=== PATIENT | male | born 1995 | race African-American/Black ===

== ENCOUNTER 2020-12-16 23:35 | Emergency (ER) | payer SELFPAY ==
[~2020-12-16] VITALS: Ht 175.3 cm; Wt 73.9 kg
[2020-12-16] MEDS ORDERED: BOOSTRIX/ADACEL VACCINE (DIPHTH/PERTUSS/ACELL/TETANUS) 0.5ML SYR IM ONE (23:50)
[2020-12-17 00:13] LABS: INR 0.96
[2020-12-17 00:14] LABS: PARTIAL THROMBOPLASTIN TIME 23.1 SECONDS (24.2-38.5)
[2020-12-17 00:17] LABS: BASO % 0.3 % (0.0-1.0); EOS # 0.1 10^3/uL (0.0-0.5); EOS % 1.3 % (0.0-3.0); HEMATOCRIT 39.8 % (42.0-52.0); HEMOGLOBIN 12.7 g/dl (13.5-17.5); LYMPH # 6.8 10^3/uL (1.5-5.0); LYMPH % 61.3 % (24.0-44.0); MEAN CORPUSCULAR HEMOGLOBIN 26.3 pg (27.0-33.0); MEAN CORPUSCULAR HGB CONC 31.9 g/dl (32.0-36.5); MEAN CORPUSCULAR VOLUME 82.6 fl (80.0-96.0); MONO # 0.6 10^3/uL (0.0-0.8); MONO % 5.4 % (2.0-8.0); NEUTROPHILS # 3.5 10^3/uL (1.5-8.5); NEUTROPHILS % 31.3 % (36.0-66.0); PLATELET COUNT, AUTOMATED 215 10^3/uL (150-450); RED BLOOD COUNT 4.82 10^6/uL (4.30-6.10); WHITE BLOOD COUNT 11.1 10^3/uL (4.0-10.0)
[2020-12-17] MEDS ORDERED: ISOVUE-370 76% 100ML VIAL As Ordered ONE (00:19)
[2020-12-17] MEDS ORDERED: MORPHINE 2 MG/ML 1ML VIAL (J2270) IV ONE (00:35)
[2020-12-17] MEDS ORDERED: LIDOCAINE 1% MDV 50ML VIAL SC ONE (00:40)
[2020-12-17 01:08] LABS: ALBUMIN 4.1 GM/DL (3.2-5.2); ALT/SGPT 46 U/L (12-78); AMYLASE 97 U/L (25-115); BILIRUBIN,DIRECT 0.2 MG/DL (0.0-0.2); BILIRUBIN,TOTAL 0.6 MG/DL (0.2-1.0); BLOOD UREA NITROGEN 14 MG/DL (7-18); CALCIUM LEVEL 8.9 MG/DL (8.5-10.1); CARBON DIOXIDE LEVEL 21 MEQ/L (21-32); CHLORIDE LEVEL 104 MEQ/L (98-107); CK-MB VALUE MASS 6.4 NG/ML (<3.6); CPK CREATINE PHOSPHOKINASE 3151 U/L (39-308); CREATININE FOR GFR 1.71 MG/DL (0.70-1.30); ETHYL ALCOHOL (ETHANOL) 0.046 % (0.000-0.010); GLOMERULAR FILTRATION RATE 52.6 (>60); GLUCOSE, FASTING 126 MG/DL (70-100); LIPASE 71 U/L (73-393); POTASSIUM SERUM 2.8 MEQ/L (3.5-5.1); SODIUM LEVEL 141 MEQ/L (136-145); TOTAL PROTEIN 7.3 GM/DL (6.4-8.2); TROPONIN I < 0.02 NG/ML (< 0.10)
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
[2020-12-17] MEDS ORDERED: NS 1,000 ML IV ONE ×2 (01:15)
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
[2020-12-17 02:57] LABS: AMPHETAMINES LEVEL URINE NEGATIVE (NEGATIVE); BARBITURATES URINE NEGATIVE (NEGATIVE); BENZODIAZEPINES URINE NEGATIVE (NEGATIVE); CANNABINOIDS URINE NEGATIVE (NEGATIVE); COCAINE METABOLITE URINE NEGATIVE (NEGATIVE); METHADONE URINE NEGATIVE (NEGATIVE); OPIATES URINE POSITIVE (NEGATIVE); PHENCYCLIDINE URINE NEGATIVE (NEGATIVE)
[2020-12-17 07:15] VITALS: BP 107/52
[2020-12-17] MEDS ORDERED: CEPH500C PO ×2 (08:24→11:51)
[2020-12-17] MEDS ORDERED: LIDOCAINE 2% W/EPINEPHRINE 20ML VIAL **PRES FREE INJ ONE (11:05)
[2020-12-17] MEDS ORDERED: LIDOCAINE W/EPINEPHRINE 1% 20ML VIAL As Ordered ONE (11:05)
[2020-12-17] MEDS ORDERED: ceFAZolin SOD 1 GM in D5W MINI-BAG PLUS 50 ML IV ONE (11:10)
[2020-12-17] MEDS ORDERED: BACITRACIN OINTMENT 30GM TUBE TOP PRN (11:15)
[2020-12-17] MEDS ORDERED: NEOSPORIN OINT 0.9 GM PKT TOP ONE (11:20)
[2020-12-17] MEDS ORDERED: BACIOIN5 (11:51)
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
== END 2020-12-17 12:14 | disposition home or self-care (01) ==
LOC: M ED 23:35 → EDBD 23:35 → M ED 12-17 03:43
DX: S02.2XXA Fracture of nasal bones, initial encounter for closed fracture (principal); S02.40CA Maxillary fracture, right side, initial encounter for closed fracture; S01.311A Laceration without foreign body of right ear, initial encounter; Y04.8XXA Assault by other bodily force, initial encounter; Y07.9 Unspecified perpetrator of maltreatment and neglect; Y92.89 Other specified places as the place of occurrence of the external cause
CPT/HCPCS: 12051; 13151; 70450; 70486; 71260; 72125; 74177; 80047; 80048; 80076; 80307; 82077; 82150; 82550; 82553; 83605; 83690; 84484; 85025; 85610; 85730; 86850; 86900; 86901; 90471; 90715; 93041; 94760; 96361; 96365; 96375; 99285; J0690; J2270; Q9967